=== PATIENT | male | born 1955 | race Caucasian/White ===

== ENCOUNTER 2018-02-20 06:52 | Day surgery (SDC) | payer BC ==
[2018-02-20] MEDS ORDERED: PROPOFOL 40 ML (09:42)
== END 2018-02-20 11:14 | disposition home or self-care (01) ==
LOC: GIL 06:52
DX: Z12.11 Encounter for screening for malignant neoplasm of colon (principal); K29.30 Chronic superficial gastritis without bleeding; K64.8 Other hemorrhoids; I10 Essential (primary) hypertension
CPT/HCPCS: 43239; 88305; 88312

== ENCOUNTER 2019-02-20 11:03 | Emergency (ER) | payer BC ==
[2019-02-20 14:10] LABS: ADD MAN DIFF? NO
[2019-02-20 14:14] LABS: BASOPHIL # 0.1 10^3/ul (0.0-0.1); BASOPHILS % 0.7 % (0.0-2.0); EOSINOPHILS # 0.2 10^3/ul (0.0-0.5); EOSINOPHILS % 2.4 % (0.0-7.0); HEMATOCRIT 41.5 % (42.0-52.0); HEMOGLOBIN 13.1 g/dl (14.0-18.0); LYMPHOCYTES # 1.3 10^3/ul (0.8-2.9); LYMPHOCYTES % 18.6 % (15.0-51.0); MEAN CORPUSCULAR HGB CONC 31.6 g/dl (32.0-37.0); MEAN CORPUSCULAR VOLUME 85.4 fl (82.0-101.0); MEAN PLATELET VOLUME 11.3 fl (7.4-10.4); MONOCYTE # 0.5 10^3/ul (0.3-0.9); MONOCYTES % 6.9 % (0.0-11.0); NEUTROPHIL # 4.8 10^3/ul (1.6-7.5); PLATELET COUNT 162 10^3/UL (140-415); RED BLOOD COUNT 4.86 10^6/ul (4.70-6.10); RED CELL DISTRIBUTION WIDTH 15.4 % (11.5-14.5)
[2019-02-20 14:14] LABS: WHITE BLOOD COUNT 6.8 10^3/ul (4.8-10.8)
[2019-02-20] MEDS: ASPIRIN 325 MG TAB PO (14:27)
[2019-02-20] MEDS: NITROGLYCERIN 2% 1 GM OINT PKT TD (14:28)
[2019-02-20 14:31] LABS: ALANINE AMINOTRANSFERASE 38 IU/L (13-69); ALBUMIN 4.4 g/dl (3.3-4.9); ALBUMIN/GLOBULIN RATIO 1.33; ALKALINE PHOSPHATASE 82 IU/L (42-121); ANION GAP 10 (5-13); ASPARTATE AMINO TRANSFERASE 44 IU/L (15-46); BILIRUBIN,INDIRECT 1.2 mg/dl (0-1.1); BILIRUBIN,TOTAL 1.2 mg/dl (0.2-1.3); BLOOD UREA NITROGEN 16 mg/dl (7-20); CALCIUM 9.5 mg/dl (8.4-10.2); CARBON DIOXIDE 28 mmol/L (21-31); CHLORIDE 103 mmol/L (97-110); CREATININE 0.98 mg/dl (0.61-1.24); Estimated GFR > 60 mL/min (>60); GLUCOSE 126 mg/dl (70-220); POTASSIUM 4.3 mmol/L (3.5-5.1); SODIUM 141 mmol/L (135-144); TOTAL PROTEIN 7.7 g/dl (6.1-8.1)
[2019-02-20 14:33] LABS: INR 1.05; PROTIME 13.8 Sec (11.9-14.9); PT RATIO 1.1
[2019-02-20 14:34] LABS: PARTIAL THROMBOPLASTIN TIME 30.5 Sec (23.0-35.0)
[2019-02-20 14:43] LABS: B-TYPE NATRIURETIC PEPTIDE 419 PG/ML (0-125); TROPONIN-I 0.036 ng/ml (0.000-0.120)
== END 2019-02-20 18:18 | disposition home or self-care (01) ==
LOC: E/R 11:03
DX: J90 Pleural effusion, not elsewhere classified (principal); I10 Essential (primary) hypertension; E11.9 Type 2 diabetes mellitus without complications; Z79.84 Long term (current) use of oral hypoglycemic drugs
CPT/HCPCS: 36415; 71045; 80053; 83880; 84484; 85025; 85610; 85730; 93005; 99285-25

== ENCOUNTER 2019-07-03 16:43 | Inpatient (IN) | payer OTHER, BC ==
[2019-07-03] MEDS: DIGOXIN 0.25 MG TAB PO (17:34)
[2019-07-03] MEDS: FUROSEMIDE 40 MG INJ IV (17:35)
[2019-07-03] MEDS: NITROGLYCERIN (SL) 0.4 MG TAB SL (17:35)
[2019-07-03] MEDS: ASPIRIN 81 MG TAB PO (17:35)
[2019-07-03 17:37] LABS: ADD MAN DIFF? NO
[2019-07-03 17:43] LABS: BASOPHILS % 0.4 % (0.0-2.0); EOSINOPHILS # 0.1 10^3/ul (0.0-0.5); EOSINOPHILS % 1.4 % (0.0-7.0); HEMATOCRIT 40.5 % (42.0-52.0); HEMOGLOBIN 12.4 g/dl (14.0-18.0); LYMPHOCYTES # 1.3 10^3/ul (0.8-2.9); LYMPHOCYTES % 15.6 % (15.0-51.0); MEAN CORPUSCULAR HGB CONC 30.6 g/dl (32.0-37.0); MEAN PLATELET VOLUME 10.9 fl (7.4-10.4); MONOCYTE # 0.5 10^3/ul (0.3-0.9); MONOCYTES % 5.8 % (0.0-11.0); NEUTROPHIL # 6.4 10^3/ul (1.6-7.5); NEUTROPHILS % 76.4 % (39.0-77.0); PLATELET COUNT 185 10^3/UL (140-415); RED CELL DISTRIBUTION WIDTH 15.6 % (11.5-14.5)
[2019-07-03 17:43] LABS: WHITE BLOOD COUNT 8.3 10^3/ul (4.8-10.8)
[2019-07-03] MEDS: DILTIAZEM 25 MG INJ IV (17:43)
[2019-07-03 18:02] LABS: ALANINE AMINOTRANSFERASE 33 IU/L (13-69); ALBUMIN 3.7 g/dl (3.3-4.9); ALBUMIN/GLOBULIN RATIO 1.02; ALKALINE PHOSPHATASE 84 IU/L (42-121); ANION GAP 8 (5-13); ASPARTATE AMINO TRANSFERASE 29 IU/L (15-46); BILIRUBIN,INDIRECT 1.1 mg/dl (0-1.1); BILIRUBIN,TOTAL 1.1 mg/dl (0.2-1.3); BLOOD UREA NITROGEN 20 mg/dl (7-20); CALCIUM 9.3 mg/dl (8.4-10.2); CARBON DIOXIDE 27 mmol/L (21-31); CHLORIDE 103 mmol/L (97-110); CREATININE 1.24 mg/dl (0.61-1.24); Estimated GFR 59 mL/min (>60); GLUCOSE 154 mg/dl (70-220); LIPASE 46 U/L (23-300); POTASSIUM 4.7 mmol/L (3.5-5.1); SODIUM 138 mmol/L (135-144); TOTAL PROTEIN 7.3 g/dl (6.1-8.1)
[2019-07-03 18:14] LABS: B-TYPE NATRIURETIC PEPTIDE 1700 PG/ML (0-125); TROPONIN-I 0.101 ng/ml (0.000-0.120)
[2019-07-03 18:20] LABS: INR 1.15; PARTIAL THROMBOPLASTIN TIME 29.1 Sec (23.0-35.0); PROTIME 14.8 Sec (11.9-14.9); PT RATIO 1.2
[2019-07-03] MEDS ORDERED: ACETAMINOPHEN 325 MG TAB PO (18:30)
[2019-07-03] MEDS ORDERED: ONDANSETRON 4 MG INJ IV ×2 (18:30→20:00)
[2019-07-03] MEDS ORDERED: TERAZOSIN 2 MG CAP PO (21:00)
[2019-07-03] MEDS: ENOXAPARIN 100 MG/ML SYG SC (21:00)
[2019-07-03] MEDS: FERROUS SULFATE (EC) 325 MG TAB PO (21:21)
[2019-07-03] MEDS: ATORVASTATIN 40 MG TAB PO (21:21)
[2019-07-03] MEDS: METOPROLOL 25 MG TAB PO (21:28)
[2019-07-03] MEDS: ACCU-CHEK XX (21:34)
[2019-07-03] MEDS: TERAZOSIN 1 MG CAP PO (21:54)
[2019-07-03] MEDS ORDERED: morphine 2 MG INJ IV (22:30)
[2019-07-04 01:24] LABS: TROPONIN-I 0.137 ng/ml (0.000-0.120)
[2019-07-04 05:45] LABS: ADD MAN DIFF? NO
[2019-07-04 05:50] LABS: BASOPHILS % 0.7 % (0.0-2.0); EOSINOPHILS # 0.2 10^3/ul (0.0-0.5); EOSINOPHILS % 2.6 % (0.0-7.0); HEMATOCRIT 37.3 % (42.0-52.0); HEMOGLOBIN 11.7 g/dl (14.0-18.0); LYMPHOCYTES # 1.2 10^3/ul (0.8-2.9); LYMPHOCYTES % 21.4 % (15.0-51.0); MEAN CORPUSCULAR HEMOGLOBIN 27.1 pg (29.0-33.0); MEAN CORPUSCULAR HGB CONC 31.4 g/dl (32.0-37.0); MEAN CORPUSCULAR VOLUME 86.5 fl (82.0-101.0); MEAN PLATELET VOLUME 10.9 fl (7.4-10.4); MONOCYTE # 0.5 10^3/ul (0.3-0.9); MONOCYTES % 8.2 % (0.0-11.0); NEUTROPHIL # 3.8 10^3/ul (1.6-7.5); NEUTROPHILS % 66.9 % (39.0-77.0); PLATELET COUNT 144 10^3/UL (140-415); RED BLOOD COUNT 4.31 10^6/ul (4.70-6.10); RED CELL DISTRIBUTION WIDTH 15.4 % (11.5-14.5)
[2019-07-04 05:50] LABS: WHITE BLOOD COUNT 5.7 10^3/ul (4.8-10.8)
[2019-07-04 06:26] LABS: FREE T4 (FREE THYROXINE) 1.07 ng/dl (0.78-2.44)
[2019-07-04 06:32] LABS: ALANINE AMINOTRANSFERASE 26 IU/L (13-69); ALBUMIN 3.1 g/dl (3.3-4.9); ALKALINE PHOSPHATASE 70 IU/L (42-121); ANION GAP 6 (5-13); ASPARTATE AMINO TRANSFERASE 25 IU/L (15-46); BILIRUBIN,INDIRECT 1.1 mg/dl (0-1.1); BILIRUBIN,TOTAL 1.1 mg/dl (0.2-1.3); BLOOD UREA NITROGEN 21 mg/dl (7-20); CALCIUM 8.6 mg/dl (8.4-10.2); CARBON DIOXIDE 28 mmol/L (21-31); CHLORIDE 105 mmol/L (97-110); CHOLESTEROL 142 mg/dl (100-200); CREATININE 1.06 mg/dl (0.61-1.24); Estimated GFR > 60 mL/min (>60); GLUCOSE 136 mg/dl (70-220); HDL CHOLESTEROL 28 mg/dl (30-78); LDL CHOLESTEROL,CALCULATED 94 mg/dl; POTASSIUM 4.1 mmol/L (3.5-5.1); SODIUM 139 mmol/L (135-144); TOTAL PROTEIN 6.2 g/dl (6.1-8.1); TRIGLYCERIDES 101 mg/dl (0-149)
[2019-07-04] MEDS: FUROSEMIDE 40 MG INJ IV ×2 (07:31→17:23)
[2019-07-04] MEDS: ACCU-CHEK XX ×4 (07:57→20:33)
[2019-07-04] MEDS: METOPROLOL 25 MG TAB PO (07:58)
[2019-07-04] MEDS: metFORMIN 500 MG TAB PO ×2 (07:58→17:22)
[2019-07-04] MEDS: FENOFIBRATE 145 MG TAB PO (08:46)
[2019-07-04] MEDS: AMLODIPINE 5 MG TAB PO (08:46)
[2019-07-04] MEDS: ASPIRIN (EC) 81 MG TAB PO (08:46)
[2019-07-04] MEDS: FERROUS SULFATE (EC) 325 MG TAB PO ×2 (08:46→20:33)
[2019-07-04] MEDS: ENOXAPARIN 100 MG/ML SYG SC (08:49)
[2019-07-04 10:26] LABS: TROPONIN-I 0.109 ng/ml (0.000-0.120)
[2019-07-04] MEDS: METOPROLOL 50 MG TAB PO (10:40)
[2019-07-04 13:30] LABS: TROPONIN-I 0.099 ng/ml (0.000-0.120)
[2019-07-04] MEDS: APIXABAN 5 MG TABLET PO (20:32)
[2019-07-04] MEDS: ATORVASTATIN 40 MG TAB PO (20:32)
[2019-07-04] MEDS ORDERED: METOPROLOL (XL) 50 MG TAB PO (21:00)
[2019-07-04] MEDS: SACUBITRIL/VALSARTAN (49mg-51mg) TABLET PO (21:16)
[2019-07-05] MEDS: FUROSEMIDE 40 MG INJ IV (05:51)
[2019-07-05] MEDS: ACCU-CHEK XX ×2 (06:51→11:24)
[2019-07-05 07:21] LABS: ANION GAP 9 (5-13); BLOOD UREA NITROGEN 25 mg/dl (7-20); CARBON DIOXIDE 30 mmol/L (21-31); CHLORIDE 99 mmol/L (97-110); CREATININE 1.17 mg/dl (0.61-1.24); Estimated GFR > 60 mL/min (>60); GLUCOSE 135 mg/dl (70-220); POTASSIUM 3.6 mmol/L (3.5-5.1); SODIUM 138 mmol/L (135-144)
[2019-07-05] MEDS: metFORMIN 500 MG TAB PO (07:40)
[2019-07-05] MEDS: ACETAMINOPHEN 325 MG TAB PO (08:44)
[2019-07-05] MEDS: APIXABAN 5 MG TABLET PO (08:44)
[2019-07-05] MEDS: FENOFIBRATE 145 MG TAB PO (08:44)
[2019-07-05] MEDS: FERROUS SULFATE (EC) 325 MG TAB PO (08:44)
[2019-07-05] MEDS: SACUBITRIL/VALSARTAN (49mg-51mg) TABLET PO (08:44)
[2019-07-05] MEDS: ASPIRIN (EC) 81 MG TAB PO (08:44)
[2019-07-05] MEDS ORDERED: LISINOPRIL 10 MG TAB PO (09:00)
[2019-07-05] MEDS: POTASSIUM CHLORIDE (SR) 20 MEQ TAB PO (12:42)
== END 2019-07-05 13:39 | disposition home or self-care (01) | DRG 293 ==
LOC: E/R 16:43 → TEL 18:13
DX: I11.0 Hypertensive heart disease with heart failure (principal); I48.91 Unspecified atrial fibrillation; E11.9 Type 2 diabetes mellitus without complications; E78.5 Hyperlipidemia, unspecified; I50.23 Acute on chronic systolic (congestive) heart failure; I42.9 Cardiomyopathy, unspecified
CPT/HCPCS: 36415; 71045; 80048; 80053; 80061; 80076; 82962; 83690; 83880; 84439; 84443; 84484; 85025; 85610; 85730; 93005; 93306; 96374; 96375; 99285-25